=== PATIENT | male | born 1975 | race African-American/Black ===

== ENCOUNTER 2019-10-17 21:02 | Emergency (ER) | payer MEDICAID, OTHER ==
[~2019-10-17] VITALS: Ht 182.9 cm; Wt 78.0 kg
[2019-10-17 21:25] VITALS: BP 154/108
== END 2019-10-18 00:29 | disposition left against medical advice (07) ==
LOC: ER 21:02
DX: R51 Headache (principal); Z53.21 Procedure and treatment not carried out due to patient leaving prior to being seen by health care provider

== ENCOUNTER 2019-10-18 00:46 | Emergency (ER) | payer MEDICAID ==
[~2019-10-18] VITALS: Ht 182.9 cm; Wt 78.0 kg
[2019-10-18 03:30] VITALS: BP 150/62
== END 2019-10-18 05:12 | disposition left against medical advice (07) ==
LOC: ER 00:46
DX: S00.33XA Contusion of nose, initial encounter (principal); J45.909 Unspecified asthma, uncomplicated; I10 Essential (primary) hypertension; F17.200 Nicotine dependence, unspecified, uncomplicated; Z96.659 Presence of unspecified artificial knee joint; Z98.890 Other specified postprocedural states; W18.39XA Other fall on same level, initial encounter; Y93.89 Activity, other specified; Y92.89 Other specified places as the place of occurrence of the external cause; Y99.8 Other external cause status
CPT/HCPCS: 99281

== ENCOUNTER 2021-01-30 22:00 | Emergency (ER) | payer MEDICAID ==
[~2021-01-30] VITALS: Ht 182.9 cm; Wt 64.0 kg
[2021-01-30 22:04] VITALS: BP 125/71
== END 2021-01-31 00:03 | disposition left against medical advice (07) ==
LOC: ER 22:00
DX: Z53.21 Procedure and treatment not carried out due to patient leaving prior to being seen by health care provider (principal); I10 Essential (primary) hypertension; Z98.890 Other specified postprocedural states

== ENCOUNTER 2021-03-03 06:17 | Inpatient (IN) | payer MEDICAID ==
[~2021-03-03] VITALS: Ht 182.9 cm; Wt 75.1 kg
[2021-03-03] MEDS ORDERED: ONDANSETRON HCL 4MG/2ML INJ IV STA (07:22)
[2021-03-03] MEDS ORDERED: MORPHINE SULFATE 4 MG/ML CPJ (NOT FOR IM USE) IV STA (07:22)
[2021-03-03] MEDS ORDERED: SODIUM CHLORIDE 0.9% 1,000 ML IV ONE (07:30)
[2021-03-03 08:02] LABS: BASOPHILS % 0.2 % (0.0-2.0); EOSINOPHILS % 0.4 % (0.0-5.0); HEMATOCRIT. 37.8 % (42.0-52.0); HEMOGLOBIN. 12.6 g/dL (14.0-18.0); LYMPHOCYTES % 8.1 % (20.0-50.0); MEAN CORPUSCULAR HEMOGLOBIN 30.7 pg (28.0-32.0); MEAN CORPUSCULAR VOLUME 92.4 fL (80.0-94.0); MEAN PLATELET VOLUME 7.9 fl (7.4-10.4); MONOCYTES % 8.5 % (2.0-8.0); NEUTROPHILS % 82.8 % (40.0-76.0); PLATELET 189 x1000/uL (130-400); RED BLOOD CELL COUNT 4.09 mill/uL (4.7-6.1); RED CELL DISTRIBUTION WIDTH 13.9 % (11.6-14.6)
[2021-03-03 08:09] LABS: CHLORIDE 106 mEq/L (98-107)
[2021-03-03 08:11] LABS: PROTHROMBIN TIME 10.9 sec (9.6-11.0)
[2021-03-03] MEDS ORDERED: IOHEXOL-300 100 ML BOTTLE ONE (08:51)
[2021-03-03] MEDS ORDERED: ASPIRIN 325MG EC TABLET PO ONE (11:15)
[2021-03-03 12:00] VITALS: BP 160/106
[2021-03-03] MEDS: CLONIDINE 0.1MG TABLET PO PRN (13:02)
[2021-03-03] MEDS: MORPHINE SULFATE 2 MG/ML CPJ (NOT FOR IM USE) IV PRN ×2 (13:04→20:53)
[2021-03-03] MEDS: ENOXAPARIN 40MG/0.4ML SYR SUBCUT SCH (13:08)
[2021-03-03] MEDS ORDERED: NITROGLYCERIN 0.1MG/HR PATCH TOP SCH (14:00)
[2021-03-03] MEDS: DOCUSATE SODIUM 100MG CAPSULE PO SCH ×2 (16:07→20:40)
[2021-03-03] MEDS: PSYLLIUM SEED PACKET PO SCH ×2 (16:07→17:27)
[2021-03-03] MEDS: LACTULOSE 20G/30ML UDC PO SCH ×2 (16:07→22:14)
[2021-03-03 16:30] VITALS: BP 146/92
[2021-03-03 20:00] VITALS: BP 127/87
[2021-03-03] MEDS: METOPROLOL TARTRATE 50MG TABLET PO SCH (20:40)
[2021-03-04] VITALS: BP 130/89
[2021-03-04 04:00] VITALS: BP 140/98
[2021-03-04] MEDS: LACTULOSE 20G/30ML UDC PO SCH ×3 (05:35→20:44)
[2021-03-04] MEDS: MORPHINE SULFATE 2 MG/ML CPJ (NOT FOR IM USE) IV PRN ×2 (05:35→18:11)
[2021-03-04 06:35] LABS: BASOPHILS % 0.2 % (0.0-2.0); EOSINOPHILS % 0.6 % (0.0-5.0); HEMATOCRIT. 35.6 % (42.0-52.0); HEMOGLOBIN. 11.9 g/dL (14.0-18.0); LYMPHOCYTES % 31.6 % (20.0-50.0); MEAN CORPUSCULAR HEMOGLOBIN 31.1 pg (28.0-32.0); MEAN CORPUSCULAR VOLUME 93.3 fL (80.0-94.0); MEAN PLATELET VOLUME 8.3 fl (7.4-10.4); MONOCYTES % 6.3 % (2.0-8.0); NEUTROPHILS % 61.3 % (40.0-76.0); PLATELET 200 x1000/uL (130-400); RED BLOOD CELL COUNT 3.82 mill/uL (4.7-6.1); RED CELL DISTRIBUTION WIDTH 14.1 % (11.6-14.6)
[2021-03-04] MEDS: NITROGLYCERIN OINT 1GM/INCH UDPKT TD SCH ×4 (07:13→20:51)
[2021-03-04 08:00] VITALS: BP 136/95
[2021-03-04] MEDS: ASPIRIN 81MG TABLET PO SCH (09:39)
[2021-03-04] MEDS: DOCUSATE SODIUM 100MG CAPSULE PO SCH ×2 (09:39→17:00)
[2021-03-04] MEDS: TAMSULOSIN HCL 0.4MG SR CAPSULE PO SCH (09:39)
[2021-03-04] MEDS: PSYLLIUM SEED PACKET PO SCH ×3 (09:39→17:00)
[2021-03-04] MEDS: METOPROLOL TARTRATE 50MG TABLET PO SCH ×2 (09:39→20:45)
[2021-03-04] MEDS: FAMOTIDINE 20MG TABLET PO SCH (09:40)
[2021-03-04] MEDS: METHADONE HCL 10MG TABLET PO SCH (09:42)
[2021-03-04 12:00] VITALS: BP 128/92
[2021-03-04] MEDS: NA PHOS,M-B/NA PHOS,DI-BA ENEMA 118ML PR NR ×2 (12:31→18:02)
[2021-03-04 12:55] LABS: CHLORIDE 106 mEq/L (98-107)
[2021-03-04] MEDS: CLONIDINE 0.1MG TABLET PO PRN (13:04)
[2021-03-04] MEDS: ENOXAPARIN 40MG/0.4ML SYR SUBCUT SCH (13:05)
[2021-03-04] MEDS ORDERED: AMLO10TA80 MT (15:01)
[2021-03-04 16:00] VITALS: BP 117/80
[2021-03-04 19:02] LABS: *AMPHETAMINES SCREEN URINE PRESUMTIVE POSITIVE (NEGATIVE); *BARBITURATES SCREEN URINE NEGATIVE (NEGATIVE); *BENZODIAZEPINES SCREEN URINE NEGATIVE (NEGATIVE); *COCAINE SCREEN URINE NEGATIVE (NEGATIVE)
[2021-03-04 19:03] LABS: METHADONE URINE SCREEN PRESUMTIVE POSITIVE (NEGATIVE); OPIATES URINE SCREEN PRESUMTIVE POSITIVE (NEGATIVE); PHENCYCLIDINE URINE SCREEN NEGATIVE (NEGATIVE)
[2021-03-04 19:16] LABS: CANNABINOID URINE SCREEN NEGATIVE (NEGATIVE)
[2021-03-04 20:00] VITALS: BP 133/98
[2021-03-05] VITALS: BP 138/89
[2021-03-05] MEDS: MORPHINE SULFATE 2 MG/ML CPJ (NOT FOR IM USE) IV PRN ×2 (01:05→06:23)
[2021-03-05 04:00] VITALS: BP 131/87
[2021-03-05] MEDS: NITROGLYCERIN OINT 1GM/INCH UDPKT TD SCH ×2 (06:00→06:15)
[2021-03-05] MEDS: LACTULOSE 20G/30ML UDC PO SCH (06:15)
[2021-03-05 06:47] LABS: CHLORIDE 105 mEq/L (98-107)
[2021-03-05 06:57] LABS: BASOPHILS % 0.5 % (0.0-2.0); EOSINOPHILS % 0.9 % (0.0-5.0); HEMATOCRIT. 33.8 % (42.0-52.0); HEMOGLOBIN. 11.3 g/dL (14.0-18.0); LYMPHOCYTES % 51.6 % (20.0-50.0); MEAN CORPUSCULAR HEMOGLOBIN 30.7 pg (28.0-32.0); MEAN CORPUSCULAR VOLUME 91.6 fL (80.0-94.0); MEAN PLATELET VOLUME 8.7 fl (7.4-10.4); MONOCYTES % 5.7 % (2.0-8.0); NEUTROPHILS % 41.3 % (40.0-76.0); PLATELET 194 x1000/uL (130-400); RED BLOOD CELL COUNT 3.69 mill/uL (4.7-6.1); RED CELL DISTRIBUTION WIDTH 13.7 % (11.6-14.6)
[2021-03-05 08:00] VITALS: BP 124/86
[2021-03-05] MEDS: DOCUSATE SODIUM 100MG CAPSULE PO SCH (08:34)
[2021-03-05] MEDS: PSYLLIUM SEED PACKET PO SCH ×3 (08:34→12:06)
[2021-03-05] MEDS: ASPIRIN 81MG TABLET PO SCH (08:34)
[2021-03-05] MEDS: FAMOTIDINE 20MG TABLET PO SCH (08:35)
[2021-03-05] MEDS: TAMSULOSIN HCL 0.4MG SR CAPSULE PO SCH (08:35)
[2021-03-05] MEDS: METOPROLOL TARTRATE 50MG TABLET PO SCH (08:36)
[2021-03-05] MEDS: METHADONE HCL 10MG TABLET PO SCH (08:36)
[2021-03-05 11:17] VITALS: BP 125/88
[2021-03-05 12:00] VITALS: BP 125/88
[2021-03-05] MEDS: ENOXAPARIN 40MG/0.4ML SYR SUBCUT SCH (12:06)
== END 2021-03-05 14:00 | disposition home or self-care (01) | DRG 247 ==
LOC: ER 07:07 → 5WST 10:28 → ENRESERV 10:31
PROVIDERS: ADMIT Internal Medicine; ATTEND Internal Medicine
DX: K56.41 Fecal impaction (principal); F11.20 Opioid dependence, uncomplicated; M94.0 Chondrocostal junction syndrome [Tietze]; I48.0 Paroxysmal atrial fibrillation; I16.0 Hypertensive urgency; I10 Essential (primary) hypertension; F15.10 Other stimulant abuse, uncomplicated; E78.5 Hyperlipidemia, unspecified; F17.290 Nicotine dependence, other tobacco product, uncomplicated; G89.29 Other chronic pain; M17.0 Bilateral primary osteoarthritis of knee; Z82.49 Family history of ischemic heart disease and other diseases of the circulatory system; Z91.14 Patient's other noncompliance with medication regimen; Z71.51 Drug abuse counseling and surveillance of drug abuser
CPT/HCPCS: 36415; 71045; 74177; 80048; 80053; 80061; 80305; 83605; 83735; 84484; 85025; 86780; 93005; 93306; 99285; J1650; J2270; J2405; J7030; Q9967; A4315

== ENCOUNTER 2021-07-09 10:55 | Emergency (ER) | payer MEDICAID ==
[~2021-07-09] VITALS: Ht 182.9 cm; Wt 73.0 kg
[~2021-07-09 10:55] MED LIST: AMLO10TA80 MT
[2021-07-09] MEDS ORDERED: ONDANSETRON HCL 4MG/2ML INJ IV STA (11:05)
[2021-07-09] MEDS ORDERED: FAMOTIDINE 20MG/2ML VIAL IV STA (11:05)
[2021-07-09] MEDS ORDERED: MORPHINE SULFATE 4 MG/ML CPJ (NOT FOR IM USE) IV STA (11:05)
[2021-07-09] MEDS ORDERED: SODIUM CHLORIDE 0.9% 1,000 ML IV ONE (11:15)
[2021-07-09 11:39] LABS: BASOPHILS % 0.2 % (0.0-2.0); EOSINOPHILS % 0.2 % (0.0-5.0); HEMOGLOBIN. 11.6 g/dL (14.0-18.0); LYMPHOCYTES % 23.3 % (20.0-50.0); MEAN CORPUSCULAR HEMOGLOBIN 30.5 pg (28.0-32.0); MEAN CORPUSCULAR VOLUME 91.8 fL (80.0-94.0); MEAN PLATELET VOLUME 7.9 fl (7.4-10.4); MONOCYTES % 3.1 % (2.0-8.0); NEUTROPHILS % 73.2 % (40.0-76.0); PLATELET 256 x1000/uL (130-400); RED BLOOD CELL COUNT 3.81 mill/uL (4.7-6.1)
[2021-07-09 11:47] LABS: CHLORIDE 110 mEq/L (98-107)
[2021-07-09 11:50] LABS: ETHANOL BLOOD < 10 mg/dL
[2021-07-09] MEDS ORDERED: IOHEXOL-300 100 ML BOTTLE ONE (14:23)
[2021-07-09 15:16] LABS: CLARITY URINE CLEAR (CLEAR); COLOR URINE YELLOW (YELLOW); KETONES URINE TRACE (NEGATIVE); LEUKOCYTE ESTERASE URINE NEGATIVE (NEGATIVE); NITRITE URINE NEGATIVE (NEGATIVE); OCCULT BLOOD URINE NEGATIVE (NEGATIVE); PROTEIN URINE NEGATIVE (NEGATIVE); SPECIFIC GRAVITY URINE 1.075 (1.005-1.030)
[2021-07-09 15:30] LABS: *AMPHETAMINES SCREEN URINE PRESUMTIVE POSITIVE (NEGATIVE); *BARBITURATES SCREEN URINE NEGATIVE (NEGATIVE); *BENZODIAZEPINES SCREEN URINE NEGATIVE (NEGATIVE); *COCAINE SCREEN URINE NEGATIVE (NEGATIVE)
[2021-07-09 15:32] LABS: CANNABINOID URINE SCREEN NEGATIVE (NEGATIVE); METHADONE URINE SCREEN PRESUMTIVE POSITIVE (NEGATIVE); OPIATES URINE SCREEN PRESUMTIVE POSITIVE (NEGATIVE); PHENCYCLIDINE URINE SCREEN NEGATIVE (NEGATIVE)
[2021-07-09] MEDS ORDERED: IBUP-2028 MT (16:39)
[2021-07-09 16:54] VITALS: BP 148/93
== END 2021-07-09 16:58 | disposition home or self-care (01) ==
LOC: ER 10:55
DX: R10.33 Periumbilical pain (principal); R11.2 Nausea with vomiting, unspecified; I10 Essential (primary) hypertension; Z98.890 Other specified postprocedural states
CPT/HCPCS: 36415; 74177; 80053; 80305; 80320; 81003; 83690; 84484; 85025; 93005; 96361; 96374; 96375; 99285; J2270; J2405; J3490; J7030; Q9967; Z7610; G0480

== ENCOUNTER 2022-01-01 10:18 | Emergency (ER) | payer MEDICAID ==
[~2022-01-01] VITALS: Ht 177.8 cm; Wt 91.0 kg
[~2022-01-01 10:18] MED LIST changes: +IBUP-2028 MT
[2022-01-01] MEDS ORDERED: ONDANSETRON HCL 4MG/2ML INJ IV STA (10:28)
[2022-01-01] MEDS ORDERED: SODIUM CHLORIDE 0.9% 1,000 ML IV ONE (10:30)
[2022-01-01 11:30] LABS: BASOPHILS % 0.4 % (0.0-2.0); EOSINOPHILS % 0.2 % (0.0-5.0); HEMATOCRIT. 39.8 % (42.0-52.0); HEMOGLOBIN. 13.2 g/dL (14.0-18.0); LYMPHOCYTES % 50.5 % (20.0-50.0); MEAN CORPUSCULAR HEMOGLOBIN 29.9 pg (28.0-32.0); MEAN PLATELET VOLUME 8.1 fl (7.4-10.4); MONOCYTES % 2.3 % (2.0-8.0); NEUTROPHILS % 46.6 % (40.0-76.0); PLATELET 265 x1000/uL (130-400); RED BLOOD CELL COUNT 4.42 mill/uL (4.7-6.1); RED CELL DISTRIBUTION WIDTH 15.3 % (11.6-14.6)
[2022-01-01] MEDS ORDERED: KETOROLAC 30MG/ML VIAL IV ONE (11:30)
[2022-01-01 11:33] LABS: CHLORIDE 105 mEq/L (98-107)
[2022-01-01 11:38] LABS: ETHANOL BLOOD < 10 mg/dL
[2022-01-01 11:48] LABS: CLARITY URINE CLEAR (CLEAR); COLOR URINE YELLOW (YELLOW); KETONES URINE TRACE (NEGATIVE); LEUKOCYTE ESTERASE URINE NEGATIVE (NEGATIVE); NITRITE URINE NEGATIVE (NEGATIVE); OCCULT BLOOD URINE NEGATIVE (NEGATIVE); PH URINE 7.5 (4.5-8.0); PROTEIN URINE NEGATIVE (NEGATIVE); SPECIFIC GRAVITY URINE 1.028 (1.005-1.030)
[2022-01-01 12:16] LABS: OPIATES URINE SCREEN NEGATIVE (NEGATIVE)
[2022-01-01 12:17] LABS: *AMPHETAMINES SCREEN URINE PRESUMTIVE POSITIVE (NEGATIVE); *BARBITURATES SCREEN URINE NEGATIVE (NEGATIVE); *BENZODIAZEPINES SCREEN URINE NEGATIVE (NEGATIVE); *COCAINE SCREEN URINE NEGATIVE (NEGATIVE); CANNABINOID URINE SCREEN NEGATIVE (NEGATIVE); PHENCYCLIDINE URINE SCREEN NEGATIVE (NEGATIVE)
[2022-01-01] MEDS ORDERED: TOPUD PO (12:41)
[2022-01-01 13:20] VITALS: BP 145/87
[2022-01-03 13:50] LABS: METHADONE URINE SCREEN PRESUMTIVE POSITIVE (NEGATIVE)
== END 2022-01-01 13:21 | disposition home or self-care (01) ==
LOC: ER 10:24
DX: F19.10 Other psychoactive substance abuse, uncomplicated (principal); B34.9 Viral infection, unspecified; J45.909 Unspecified asthma, uncomplicated; I10 Essential (primary) hypertension
CPT/HCPCS: 36415; 80053; 80305; 80320; 81003; 82962; 85025; 96374; 96375; 99284; J1885; J2405; J7030; G0480

== ENCOUNTER 2022-11-25 07:00 | Emergency (ER) | payer MEDICAID ==
[~2022-11-25] VITALS: Ht 180.3 cm; Wt 82.0 kg
[~2022-11-25 07:00] MED LIST changes: +TOPUD PO
[2022-11-25 07:01] VITALS: BP 150/90
[2022-11-25 08:49] LABS: HEMATOCRIT. 37.6 % (42.0-52.0); HEMOGLOBIN. 12.6 g/dL (14.0-18.0); MEAN CORPUSCULAR HEMOGLOBIN 30.3 pg (28.0-32.0); MEAN CORPUSCULAR VOLUME 90.6 fL (80.0-94.0); MEAN PLATELET VOLUME 7.4 fl (7.4-10.4); PLATELET 296 x1000/uL (130-400); RED BLOOD CELL COUNT 4.15 mill/uL (4.7-6.1); RED CELL DISTRIBUTION WIDTH 14.3 % (11.6-14.6)
[2022-11-25 08:56] LABS: CHLORIDE 107 mEq/L (98-107)
[2022-11-25 09:05] LABS: ETHANOL BLOOD < 10 mg/dL
[2022-11-25] MEDS ORDERED: ONDANSETRON 4MG ODT PO ONE (10:00)
[2022-11-25 10:50] LABS: PLATELET ESTIMATE NORMAL
== END 2022-11-25 10:20 | disposition left against medical advice (07) ==
LOC: ER 07:00
DX: F11.10 Opioid abuse, uncomplicated (principal); D64.9 Anemia, unspecified; D72.829 Elevated white blood cell count, unspecified
CPT/HCPCS: 36415; 80053; 80320; 83690; 85025; 99283; Q0162; G0480

== ENCOUNTER 2023-02-23 16:06 | Emergency (ER) | payer MEDICAID ==
[~2023-02-23] VITALS: Ht 188 cm; Wt 86.0 kg
[2023-02-23] MEDS ORDERED: ONDANSETRON HCL 4MG/2ML INJ IV STA (16:50)
[2023-02-23] MEDS ORDERED: ASPIRIN 81MG TABLET PO ONE (17:00)
[2023-02-23 17:43] LABS: BASOPHILS % 0.3 % (0.0-2.0); EOSINOPHILS % 0.4 % (0.0-5.0); HEMATOCRIT. 33.7 % (42.0-52.0); HEMOGLOBIN. 11.2 g/dL (14.0-18.0); LYMPHOCYTES % 9.7 % (20.0-50.0); MEAN CORPUSCULAR HEMOGLOBIN 30.6 pg (28.0-32.0); MEAN CORPUSCULAR VOLUME 91.6 fL (80.0-94.0); MEAN PLATELET VOLUME 8.2 fl (7.4-10.4); MONOCYTES % 9.7 % (2.0-8.0); NEUTROPHILS % 79.9 % (40.0-76.0); PLATELET 243 x1000/uL (130-400); RED BLOOD CELL COUNT 3.68 mill/uL (4.7-6.1); RED CELL DISTRIBUTION WIDTH 14.5 % (11.6-14.6)
[2023-02-23 17:49] LABS: CHLORIDE 108 mEq/L (98-107)
[2023-02-23] MEDS ORDERED: POTASSIUM CHLORIDE 20MEQ TABLET SR PO NR (18:15)
[2023-02-23 19:13] VITALS: BP 130/74
== END 2023-02-23 19:44 | disposition home or self-care (01) ==
LOC: ER 16:06
DX: R07.89 Other chest pain (principal); R05.9 Cough, unspecified; I10 Essential (primary) hypertension; F15.10 Other stimulant abuse, uncomplicated
CPT/HCPCS: 36415; 71045; 80053; 83880; 84484; 85025; 85379; 93005; 96374; 99285; J2405; Z7610

== ENCOUNTER 2023-10-08 23:34 | Emergency (ER) | payer MEDICAID ==
[~2023-10-08] VITALS: Ht 180.3 cm; Wt 80.0 kg
[2023-10-08 23:36] VITALS: TEMP 98.1; O2SAT 98
[2023-10-08] MEDS ORDERED: MAGNESIUM/ALUMINUM HYDROXIDE/SIMETHICONE 30ML UDC PO STA (23:44)
[2023-10-08] MEDS ORDERED: PANTOPRAZOLE SODIUM 40 MG/VIAL IV STA (23:44)
[2023-10-08] MEDS ORDERED: ONDANSETRON HCL 4MG/2ML INJ IV STA (23:44)
[2023-10-08] MEDS ORDERED: KETOROLAC 30MG/ML VIAL IV STA (23:44)
[2023-10-08] MEDS ORDERED: SODIUM CHLORIDE 0.9% 1,000 ML IV ONE (23:45)
[2023-10-09 00:16] LABS: BASOPHILS % 0.4 % (0.0-2.0); EOSINOPHILS % 0.2 % (0.0-5.0); HEMATOCRIT. 36.2 % (42.0-52.0); HEMOGLOBIN. 11.9 g/dL (14.0-18.0); LYMPHOCYTES % 23.9 % (20.0-50.0); MEAN CORPUSCULAR HEMOGLOBIN 30.5 pg (28.0-32.0); MEAN CORPUSCULAR HGB CONC 32.9 g/dL (31.0-37.0); MEAN CORPUSCULAR VOLUME 92.5 fL (80.0-94.0); MEAN PLATELET VOLUME 7.8 fl (7.4-10.4); NEUTROPHILS % 73.5 % (40.0-76.0); PLATELET 243 x1000/uL (130-400); RED BLOOD CELL COUNT 3.91 mill/uL (4.7-6.1); WHITE BLOOD COUNT 7.8 x1000/uL (4.5-11.0)
[2023-10-09 00:20] LABS: PROTHROMBIN TIME 10.7 sec (9.6-11.0)
[2023-10-09 00:24] LABS: ALANINE AMINOTRANSFERASE 32 IU/L (10-49); ALBUMIN 4.3 g/dL (3.2-4.8); ASPARTATE AMINOTRANSFERASE 29 IU/L (<34); BILIRUBIN TOTAL 0.6 mg/dL (0.1-1.0); CALCIUM 9.6 mg/dL (8.7-10.4); CARBON DIOXIDE 29 mEq/L (21-32); CHLORIDE 104 mEq/L (98-107); CREATININE 0.9 mg/dL (0.6-1.3); GLUCOSE 112 mg/dL (70-105); PROTEIN TOTAL 7.1 g/dL (6.0-8.3); SODIUM 141 mEq/L (136-145); UREA NITROGEN BLOOD 11 mg/dL (9-23)
[2023-10-09 00:50] VITALS: BP 141/74; PULSE 71; RESP 16
[2023-10-09 00:56] LABS: ETHANOL BLOOD < 10 mg/dL (<10)
[2023-10-09] MEDS ORDERED: SODIUM CHLORIDE 0.9% 1,000 ML IV NR (03:45)
[2023-10-09] MEDS ORDERED: KCL 20MEQ/100ML PREMIX 100 ML IV NR (04:00)
[2023-10-09] MEDS ORDERED: ONDA4TAB50 MT (05:01)
[2023-10-09] MEDS ORDERED: NAPR500T7 MT (05:01)
[2023-10-09] MEDS ORDERED: PROT40 MT (05:01)
== END 2023-10-09 06:12 | disposition home or self-care (01) ==
LOC: ER 23:45
DX: A08.4 Viral intestinal infection, unspecified (principal); I10 Essential (primary) hypertension; E87.6 Hypokalemia; E11.9 Type 2 diabetes mellitus without complications
CPT/HCPCS: 80053; 80320; 83605; 83690; 85025; 85610; 36415; 71045; 99285; 74176; 96361; 96365; 96375; J7030; J1885; J2405; J3480; Z7610; G0480